=== PATIENT | male | born 1975 | race African-American/Black ===

== ENCOUNTER 2021-06-23 07:39 | Outpatient (CLI) | payer OTHER ==
[2021-06-23 19:50] LABS: SARS-CoV-2 PCR by NAA Not Detected (NotDetected)
== END 2021-06-23 07:40 | disposition home or self-care (01) ==
LOC: LABBT 07:39
PROVIDERS: ATTEND Family Medicine
DX: Z20.822 Contact with and (suspected) exposure to COVID-19 (principal)
CPT/HCPCS: U0003; U0005

== ENCOUNTER 2021-06-25 10:40 | Outpatient (CLI) | payer OTHER | END 2021-06-25 10:41 | disposition home or self-care (01) | LOC: RAD 10:40 | PROVIDERS: ATTEND Family Medicine | DX: I69.391 Dysphagia following cerebral infarction (principal); R13.12 Dysphagia, oropharyngeal phase; R63.30 Feeding difficulties, unspecified | CPT/HCPCS: 74230 ==